=== PATIENT | female | born 1975 | race Two or more races ===

== ENCOUNTER 2019-09-07 09:20 | Outpatient (CLI) | payer OTHER ==
[~2019-09-07 09:20] MED LIST: TYLENOL-CODEINE1 TAB PO
== END 2019-09-07 12:02 | disposition home or self-care (01) ==
LOC: LAB 09:20
DX: J11.1 Influenza due to unidentified influenza virus with other respiratory manifestations (principal)

== ENCOUNTER 2019-12-31 11:35 | Outpatient (CLI) | payer OTHER | END 2019-12-31 12:37 | disposition home or self-care (01) | LOC: LAB 11:35 | PROVIDERS: ATTEND General Practice | DX: J11.1 Influenza due to unidentified influenza virus with other respiratory manifestations (principal); Z20.828 Contact with and (suspected) exposure to other viral communicable diseases; R50.9 Fever, unspecified; Z11.59 Encounter for screening for other viral diseases ==